=== PATIENT | female | born 1960 | race Caucasian/White ===

== ENCOUNTER 2018-05-14 10:29 | Emergency (ER) | payer OTHER, SELFPAY ==
[2018-05-14 10:39] VITALS: BP 136/74; PULSE 63; RESP 16; TEMP 36.6; O2SAT 97
--- NOTE | 2018-05-14 11:21 | ED_ITS ---
HPI - Abdominal Pain General Chief Complaint: Abdominal Pain Stated Complaint: acute pancreatitis attack Time Seen by Provider: 05/14/18 11:05 Source: patient Mode of arrival: ambulatory Limitations: no limitations History of Present Illness HPI narrative: Patient is a 58-year-old female who presents with abdominal pain. She feels like her insight is burning. He has been ongoing for the last 2 days. No nausea or vomiting. No fever or chills. She has had a couple of episodes of watery diarrhea nonbloody. He says he ate out recently he does not normally do so. She also has a history of celiac disease. MD complaint: abdominal pain Pain Consistency: constant Location: periumbilical and epigastric Radiation: none Related Data Home Medications Medication Instructions Recorded Confirmed Vitamins And Enzymes 1 dose PO DAILY 05/14/18 05/14/18 naltrexone 1 dose QPM 05/14/18 05/14/18 Allergies Allergy/AdvReac Type Severity Reaction Status Date / Time cephalexin [From KEFLEX] Allergy Unknown Verified 05/14/18 10:39 ciprofloxacin [From CIPRO] Allergy Unknown Verified 05/14/18 10:39 clarithromycin [From BIAXIN] Allergy Unknown Verified 05/14/18 10:39 codeine [CODEINE] Allergy Unknown Verified 05/14/18 10:39 gentamicin [GENTAMICIN] Allergy Unknown Verified 05/14/18 10:39 melon [MELON] Allergy Unknown Verified 05/14/18 10:39 mold [MOLD] Allergy Unknown Verified 05/14/18 10:39 morphine [MORPHINE] Allergy Unknown Verified 05/14/18 10:39 peanut [PEANUT] Allergy Unknown Verified 05/14/18 10:39 Penicillins [PENICILLINS] Allergy Unknown Verified 05/14/18 10:39 procaine [From NOVOCAIN] Allergy Unknown Unverified 08/16/17 12:31 Review of Systems Review of Systems GENERAL: Denies chills, fatigue, malaise, fever, sweats, travel HEENT: Denies sinus pain, ear pain, sore throat, difficulty swallowing, neck pain RESPIRATORY: Denies dyspnea, cough, wheezing, hemoptysis, sputum. CARDIOVASCULAR: Denies chest pain, palpitations, orthopnea, edema GASTROINTESTINAL: See HPI : Denies dysuria, frequency, incontinence, hematuria, urinary retention, flank pain. MUSCULOSKELETAL: Denies weakness, joint pain, or bony pain SKIN: No rash, no erythema, no pruritus NEUROLOGIC: Denies weakness, dizziness, headache, numbness, change in speech, confusion PSYCHIATRIC: No concerning psychosocial issues. 12 point review of systems is negative except for those stated above and HPI [facility] Medical History Celiac disease (Acute) Surgical History History of cholecystectomy (Acute) Exam Initial Vital Signs Initial Vital Signs: Vital Signs Temperature 97.8 F 05/14/18 10:39 Pulse Rate 63 05/14/18 10:39 Respiratory Rate 16 05/14/18 10:39 Blood Pressure 136/74 05/14/18 10:39 Pulse Oximetry 97 05/14/18 10:39 GENERAL: Well-appearing, well-nourished and in no acute distress. HEENT: Head atraumatic,EOMI, pupils reactive CARDIOVASCULAR: Regular rate and rhythm without murmurs, rubs or gallops. RESPIRATORY: Breath sounds equal bilaterally, no wheezes rales or rhonchi. ABDOMEN: Soft, mild epigastric tenderness no guarding no rebound no right upper quadrant pain EXTREMITIES: Normal range of motion, no clubbing or edema. Neurovascularly intact NEUROLOGICAL: Alert and oriented x4.Normal gait and speech. Cranial nerves II through XII grossly intact. SKIN: Warm, dry, no laceration, no petechiae, no rashes or lesions. Course Orders Ordered: ED Orders 05/14/18 10:45 Urine Microscopic Stat 05/14/18 11:30 Complete Blood Count AUTO DIFF Stat Comprehensive Metabolic Panel Stat Lipase Stat Discontinued Medications Sodium Chloride (Normal Saline 0.9%) 1,000 mls @ 1,000 mls/hr IV CONT CAROL Last Infusion: 05/14/18 12:33 Dose: 0 mls/hr Admin: 05/14/18 11:30 Dose: 1,000 mls/hr Pantoprazole Sodium (Protonix) 40 mg IV NOW ONE Stop: 05/14/18 11:16 Last Admin: 05/14/18 11:44 Dose: Not Given Vital Signs - 8 hr 05/14/18 12:35 Pulse Rate 72 Respiratory Rate 13 Blood Pressure 124/70 Pulse Oximetry 96 MDM - Abdominal Pain Lab Data Attestation: I reviewed the patient's lab results. Result diagrams: 05/14/18 11:30 05/14/18 11:30 Lab Results 05/14/18 05/14/18 05/14/18 Range/Units 10:45 11:30 11:30 WBC 7.3 (4.5-11.0) X10^3/uL RBC 5.10 (4.0-5.2) X10^6/uL Hgb 15.0 (12.0-16.0) g/dL Hct 44.9 (36-46) % MCV 88.2 (80-100) fL MCH 29.4 (26-34) PG MCHC 33.3 (30-36) % RDW 14.0 (11.6-14.8) % Plt Count 350 (150-400) X10^3/uL Neut % (Auto) 72.1 (50-75) % Lymph % (Auto) 21.0 L (25-40) % [place] % (Auto) 6.1 (3-14) % Eos % (Auto) 0.3 L (2-4) % Baso % (Auto) 0.5 (0-2) % Neut # (Auto) 5300 (9504-4432) /uL Sodium 141 (137-145) mmol/L Potassium 4.1 (3.4-5.1) mmol/L Chloride 105 (98-107) mmol/L Carbon Dioxide 23 (22-32) mmol/L BUN 19 H (7-17) mg/dL Creatinine 1.20 H (0.52-1.04) mg/dL Estimated GFR 45.8 L (>60) mL/min BUN/Creatinine Ratio 15.8 (6-22) Glucose 110 (80-110) mg/dL Calcium 9.8 (8.4-10.2) mg/dL Total Bilirubin 0.5 (0.2-1.3) mg/dL AST 24 (14-36) IU/L ALT 37 (9-52) IU/L Alkaline Phosphatase 79 (38-126) U/L Total Protein 7.6 (6.3-8.2) g/dL Albumin 4.6 (3.5-5.0) g/dL Globulin 3.0 (1.7-4.1) g/dL Albumin/Globulin Ratio 1.5 (1.0-2.8) Lipase 376 H (23-300) U/L Urine RBC 1-5/hpf (0-5/HPF) Urine WBC None seen (0-5/HPF) Urine Bacteria None seen (None) Ur Culture Indicated? Cult not indicated Micro UA Comment Not Reportable Point of care testing: Urine Dip Bedside Urine Glucose Negative Bedside Urine Bilirubin - Negative Bedside Urine Ketone +/- 5 Urine Specific [place] 1.020 Bedside Urine Occult Blood +/- Bedside Urine pH 6.0 Bedside Urine Protein +/- 15 Bedside Urine Urobilinogen +/- 1mg Bedside Urine Nitrite - Negative Bedside Urine Leukocytes - Negative Esterase MDM Narrative Medical decision making narrative: Patient did not want Protonix thing that she had a low acid stomach. No indication of pancreatitis some slight dehydration but she is tolerating oral fluids and she has had 1 L of IV fluids. She is overall feeling better. Her abdomen remained soft at this time no need for imaging. Discharge Plan Departure Patient Disposition: Home Clinical Impression: Abdominal pain Discharge Date/Time: 05/14/18 12:36 Interventions: ED Discharge Assessment Last Done: 05/14/18 12:35 Instructions: Acute Abdominal Pain Activity Restrictions/Additional Instructions: *You have been diagnosed with abdominal pain *What to do: No sign of infection or pancreatitis today blood work does show some mild dehydration recommend increasing her fluid intake *Continue to take medications as directed *Follow up with your primary care provider in 2-3 days *Return to ER if you should have increasing pain, persistent vomiting or any new , worsening or concerning symptoms Prescriptions: No Action naltrexone 1 dose QPM RF: 0 Vitamins And Enzymes 1 dose PO DAILY RF: 0
[2018-05-14] MEDS: SODIUM CHLORIDE 0.9% 1,000 ML 1000 ML IV (11:30)
[2018-05-14 11:38] LABS: Add Manual Diff / Slide Review NO; Basophils Percent Auto 0.5 % (0-2); Eosinophils Percent Auto 0.3 % (2-4); Hematocrit 44.9 % (36-46); Mean Corpuscular HGB Conc 33.3 % (30-36); Mean Corpuscular Hemoglobin 29.4 PG (26-34); Mean Corpuscular Volume 88.2 fL (80-100); Monocytes Percent Auto 6.1 % (3-14); Neutrophils Absolute Auto 5300 /uL (1500-7000); Neutrophils Percent Auto 72.1 % (50-75); Platelet Count 350 X10^3/uL (150-400); White Blood Cell Count 7.3 X10^3/uL (4.5-11.0)
[2018-05-14 11:52] LABS: Bacteria Urine None Seen; WBC Urine None Seen (0-5/HPF)
[2018-05-14 11:55] LABS: Alanine Aminotransferase 37 IU/L (9-52); Albumin 4.6 g/dL (3.5-5.0); Albumin Globulin Ratio 1.5 (1.0-2.8); Alkaline Phosphatase 79 U/L (38-126); Aspartate Aminotransferase 24 IU/L (14-36); BUN Creatinine Ratio 15.8 (6-22); Bilirubin Total 0.5 mg/dL (0.2-1.3); Blood Urea Nitrogen 19 mg/dL (7-17); Calcium 9.8 mg/dL (8.4-10.2); Carbon Dioxide 23 mmol/L (22-32); Chloride 105 mmol/L (98-107); Estimated Glomerular Filt Rate 45.8 mL/min (>60); Glucose 110 mg/dL (80-110); HEMOLYSIS < 15 (0-50); Lipase 376 U/L (23-300); Potassium 4.1 mmol/L (3.4-5.1); Sodium 141 mmol/L (137-145); Total Protein 7.6 g/dL (6.3-8.2)
[2018-05-14 12:02] LABS: Culture Indicated Urine Cult Not Indicated; RBC Urine 1-5/HPF (0-5/HPF)
[2018-05-14 12:35] VITALS: BP 124/70; PULSE 72; RESP 13; O2SAT 96
== END 2018-05-14 12:36 | disposition home or self-care (01) ==
PROVIDERS: Emergency Provider Emergency Medicine
DX: R10.9 Unspecified abdominal pain (principal)
CPT/HCPCS: 36591; 80053; 81003; 81015; 83690; 85025; 96360; 99283; 99284

== ENCOUNTER 2018-06-08 15:54 | Emergency (ER) | payer OTHER, SELFPAY ==
[2018-06-08 16:17] VITALS: BP 138/74; PULSE 69; RESP 12; TEMP 37.2; O2SAT 98; BMI 23.5
[2018-06-08 19:32] VITALS: BP 133/71; PULSE 81; RESP 16; O2SAT 97
--- NOTE | 2018-06-08 19:42 | ED_ITS ---
HPI - Wound/Laceration <Nicole Mariano PA-C - Last Filed: 06/08/18 22:29> General Chief Complaint: Recheck/Abnormal Lab/Rx Stated Complaint: SMALL WOUND MIDDLE FINGER L HAND,NOW JAW TIGHTNESS Time Seen by Provider: 06/08/18 19:41 Source: patient Mode of arrival: ambulatory Limitations: no limitations History of Present Illness HPI narrative: this 58-year-old female comes to ED today due to concern for possible tetanus exposure. She got a tiny wound on her left middle finger when cleaning a vile vesna drain 9 days ago. she went to the pharmacy and got a tetanus shot today. She states that afterwards and especially yesterday morning her finger was popping, like a tendon issue, which concerned her. She states that she has also had some intermittent tightness in her jaw. She states that she has had some crepitus in her TMJ for some time, but this is different, not having pain. She feels like this is more in her anterior neck muscles. She states she has not had any fever , but states her normal temperature is lower than it is here. She has not had any difficulty opening or closing her jaw. She states that her finger popping has gotten better. She states that she has not had any chest pain, but did have some warmth across her chest which she thinks was related to her tetanus vaccine earlier. She denies any dyspnea. She has not had any dizziness or palpitations. She has not had any muscle spasm or tightness elsewhere. She denies any nausea or vomiting. she specifically requests metronidazole due to concern for tetanus. Related Data Home Medications Medication Instructions Recorded Confirmed Vitamins And Enzymes 1 dose PO DAILY 05/14/18 06/08/18 naltrexone 1 dose QPM 05/14/18 06/08/18 Previous Rx's Medication Instructions Recorded metronidazole 500 mg PO Q8H 7 Days #21 tab 06/08/18 Allergies Allergy/AdvReac Type Severity Reaction Status Date / Time cephalexin [From KEFLEX] Allergy Unknown Verified 06/08/18 16:24 ciprofloxacin [From CIPRO] Allergy Unknown Verified 06/08/18 16:24 clarithromycin [From BIAXIN] Allergy Unknown Verified 06/08/18 16:24 codeine [CODEINE] Allergy Unknown Verified 06/08/18 16:24 gentamicin [GENTAMICIN] Allergy Unknown Verified 06/08/18 16:24 melon [MELON] Allergy Unknown Verified 06/08/18 16:24 mold [MOLD] Allergy Unknown Verified 06/08/18 16:24 morphine [MORPHINE] Allergy Unknown Verified 06/08/18 16:24 peanut [PEANUT] Allergy Unknown Verified 06/08/18 16:24 Penicillins [PENICILLINS] Allergy Unknown Verified 06/08/18 16:24 procaine [From NOVOCAIN] Allergy Unknown Unverified 06/08/18 16:24 Review of Systems <Nicole Mariano PA-C - Last Filed: 06/08/18 22:29> Review of Systems ROS Unobtainable: All systems reviewed & are unremarkable except as noted in HPI and below Exam <Nicole Mariano PA-C - Last Filed: 06/08/18 22:29> Narrative Exam Narrative: GENERAL APPEARANCE: Patient sitting comfortably, in no distress. HEENT: PERRL, EOMI, normal oropharynx NECK/THYROID: Neck supple, no JVD, no masses. LUNGS: Clear to auscultation bilaterally. HEART: Regular rate and rhythm without murmur, normal S1, S2, no S3 or S4. ABDOMEN: Soft, NT, ND, + BS x 4 quadrants EXTREMITIES: No edema. No calf tenderness NEUROLOGIC: Alert and oriented, normal speech, and coordination. DERMATOLOGIC: She has 2 tiny scab wounds (1-2 mm ) on the right hand fingers , and 1 superficial barely visible scab on the left pointer finger just proximal to the PIP that is barely visible ( the one of concern to patient) also 1 mm. There is no surrounding erythema, no drainage MUSCULOSKELETAL: No C-spine tenderness, full range of motion of the neck. Perhaps very mild tenderness of the anterior portions of the SCM muscles. Full range of motion of the jaw without tenderness. Full range of motion of the hands and fingers without tenderness or tendon snapping. no muscle fasciculations observed. Initial Vital Signs Initial Vital Signs: Vital Signs Temperature 98.9 F 06/08/18 16:17 Pulse Rate 69 06/08/18 16:17 Respiratory Rate 12 06/08/18 16:17 Blood Pressure 138/74 06/08/18 16:17 Pulse Oximetry 98 06/08/18 16:17 <Shahbaz Conklin DO - Last Filed: 06/09/18 06:19> Initial Vital Signs Initial Vital Signs: Vital Signs Temperature 98.9 F 06/08/18 16:17 Pulse Rate 69 06/08/18 16:17 Respiratory Rate 12 06/08/18 16:17 Blood Pressure 138/74 06/08/18 16:17 Pulse Oximetry 98 06/08/18 16:17 Course <Nicole Mariano PA-C - Last Filed: 06/08/18 22:29> Additional Information: Suspect likelihood that patient's symptoms arise from tetanus exposure is extremely low. [facility]. Conklin and he agrees with assessment. We did decide to give a dose of IV Flagyl tonight, and have patient continue this orally. We also did some cardiac workup as she had some atypical symptoms with tightness in her neck. Cautioned on need to return for any acutely worsening symptoms, and also advised to contact her insurance on Monday to set up follow-up and care with a local PCP that she can see next week as she could not remember whom she saw in [facility] a couple of years ago. Orders Ordered: Discontinued Medications Metronidazole (Flagyl) 500 mg in 100 mls @ 100 mls/hr IV NOW ONE Stop: 06/08/18 21:15 Last Infusion: 06/08/18 21:45 Dose: 100 mls/hr Admin: 06/08/18 20:24 Dose: 100 mls/hr Vital Signs - 8 hr 06/08/18 16:17 06/08/18 19:32 06/08/18 21:23 Temperature 98.9 F Pulse Rate 69 81 66 Respiratory Rate 12 16 15 Blood Pressure 138/74 Blood Pressure [Left Arm] 133/71 104/65 Pulse Oximetry 98 97 99 <Shahbaz Conklin, - Last Filed: 06/09/18 06:19> Orders Ordered: Discontinued Medications Metronidazole (Flagyl) 500 mg in 100 mls @ 100 mls/hr IV NOW ONE Stop: 06/08/18 21:15 Last Infusion: 06/08/18 21:45 Dose: 100 mls/hr Admin: 06/08/18 20:24 Dose: 100 mls/hr Vital Signs - 8 hr 06/08/18 16:17 06/08/18 19:32 06/08/18 21:23 Temperature 98.9 F Pulse Rate 69 81 66 Respiratory Rate 12 16 15 Blood Pressure 138/74 Blood Pressure [Left Arm] 133/71 104/65 Pulse Oximetry 98 97 99 MDM - Wound/Laceration <Nicole Mariano PA-C - Last Filed: 06/08/18 22:29> Lab Data Attestation: I reviewed the patient's lab results. Result diagrams: 06/08/18 20:22 06/08/18 20:22 Lab Results 06/08/18 06/08/18 Range/Units 20:22 20:22 WBC 8.4 (4.5-11.0) X10^3/uL RBC 4.86 (4.0-5.2) X10^6/uL Hgb 14.0 (12.0-16.0) g/dL Hct 43.4 (36-46) % MCV 89.3 (80-100) fL MCH 28.9 (26-34) PG MCHC 32.3 (30-36) % RDW 14.5 (11.6-14.8) % Plt Count 356 (150-400) X10^3/uL Neut % (Auto) 55.1 (50-75) % Lymph % (Auto) 36.8 (25-40) % [place] % (Auto) 6.3 (3-14) % Eos % (Auto) 1.1 L (2-4) % Baso % (Auto) 0.7 (0-2) % Neut # (Auto) 4600 (2615-4369) /uL Lymph # (Auto) 3100 (3572-6562) /uL [place] # (Auto) 500 (0-900) /uL Eos # (Auto) 100 (0-450) /uL Baso # (Auto) 100 (0-100) /uL Sodium 141 (137-145) mmol/L Potassium 3.6 (3.4-5.1) mmol/L Chloride 104 (98-107) mmol/L Carbon Dioxide 26 (22-32) mmol/L BUN 24 H (7-17) mg/dL Creatinine 0.60 (0.52-1.04) mg/dL Estimated GFR > 60.0 (>60) mL/min BUN/Creatinine Ratio 40.0 H (6-22) Glucose 99 (80-110) mg/dL Calcium 9.5 (8.4-10.2) mg/dL Total Bilirubin 0.2 (0.2-1.3) mg/dL AST 24 (14-36) IU/L ALT 29 (9-52) IU/L Alkaline Phosphatase 85 (38-126) U/L Total Creatine Kinase 60 (30-135) U/L CK-MB (CK-2) TNP CK-MB (CK-2) Rel Index TNP Troponin I < 0.012 (0.01-0.034) ng/mL Total Protein 7.9 (6.3-8.2) g/dL Albumin 4.6 (3.5-5.0) g/dL Globulin 3.3 (1.7-4.1) g/dL Albumin/Globulin Ratio 1.4 (1.0-2.8) ECG Data Attestation: I personally reviewed and interpreted this ECG as follows: ( Normal sinus rhythm with rate 70, normal axis) Prior ECG tracings: not available for review <Shahbaz Conklin DO - Last Filed: 06/09/18 06:19> Lab Data Lab Results 06/08/18 06/08/18 Range/Units 20:22 20:22 WBC 8.4 (4.5-11.0) X10^3/uL RBC 4.86 (4.0-5.2) X10^6/uL Hgb 14.0 (12.0-16.0) g/dL Hct 43.4 (36-46) % MCV 89.3 (80-100) fL MCH 28.9 (26-34) PG MCHC 32.3 (30-36) % RDW 14.5 (11.6-14.8) % Plt Count 356 (150-400) X10^3/uL Neut % (Auto) 55.1 (50-75) % Lymph % (Auto) 36.8 (25-40) % [place] % (Auto) 6.3 (3-14) % Eos % (Auto) 1.1 L (2-4) % Baso % (Auto) 0.7 (0-2) % Neut # (Auto) 4600 (0434-2153) /uL Lymph # (Auto) 3100 (7468-2892) /uL [place] # (Auto) 500 (0-900) /uL Eos # (Auto) 100 (0-450) /uL Baso # (Auto) 100 (0-100) /uL Sodium 141 (137-145) mmol/L Potassium 3.6 (3.4-5.1) mmol/L Chloride 104 (98-107) mmol/L Carbon Dioxide 26 (22-32) mmol/L BUN 24 H (7-17) mg/dL Creatinine 0.60 (0.52-1.04) mg/dL Estimated GFR > 60.0 (>60) mL/min BUN/Creatinine Ratio 40.0 H (6-22) Glucose 99 (80-110) mg/dL Calcium 9.5 (8.4-10.2) mg/dL Total Bilirubin 0.2 (0.2-1.3) mg/dL AST 24 (14-36) IU/L ALT 29 (9-52) IU/L Alkaline Phosphatase 85 (38-126) U/L Total Creatine Kinase 60 (30-135) U/L CK-MB (CK-2) TNP CK-MB (CK-2) Rel Index TNP Troponin I < 0.012 (0.01-0.034) ng/mL Total Protein 7.9 (6.3-8.2) g/dL Albumin 4.6 (3.5-5.0) g/dL Globulin 3.3 (1.7-4.1) g/dL Albumin/Globulin Ratio 1.4 (1.0-2.8) Discharge Plan Departure Patient Disposition: Home Clinical Impression: Puncture wound, Muscle tightness Discharge Date/Time: 06/08/18 22:28 Interventions: ED Discharge Assessment Last Done: 06/08/18 22:28 Instructions: DI for Atypical Chest Pain, DI for Puncture Wound Activity Restrictions/Additional Instructions: Please return as we talked about if you have any acutely worsening symptoms, or new symptoms such as difficulty breathing, feeling faint, or chest pain. Also if you have difficulty opening your jaw, new movement difficulties, or fever. your chance of significant tetanus exposure is very low, however we have given you a dose of metronidazole here as you requested for this, and I have given you a prescription to continue this orally. I have given you instructions for atypical chest pain as now since you had the discomfort in your neck and had a warm feeling across your chest earlier. There was no acute problem found on your heart studies. Please call your insurance on Monday and let them know you were seen in the ED and need to arrange follow up for next week (you should be seen early next week for recheck a few days after starting the antibiotic). if you do remember where you were seen previously a couple of years ago in [place], you could also call there for follow-up. Prescriptions: New metronidazole 500 mg tablet 500 mg PO Q8H 7 Days Qty: 21 RF: 0 No Action naltrexone 1 dose QPM RF: 0 Vitamins And Enzymes 1 dose PO DAILY RF: 0 <Shahbaz Conklin DO - Last Filed: 06/09/18 06:19> Cosign ED Attending Sameeraature Attestation: I was immediately available in the department for consultation. Documentation has been reviewed. I agree with assessment and plan.
[2018-06-08] MEDS: metroNIDAZOLE 500 MG/100 ML PIGGYBACK 100 MG IV (20:24)
[2018-06-08 20:29] LABS: Add Manual Diff / Slide Review NO; Basophils Absolute Auto 100 /uL (0-100); Basophils Percent Auto 0.7 % (0-2); Eosinophils Absolute Auto 100 /uL (0-450); Eosinophils Percent Auto 1.1 % (2-4); Hematocrit 43.4 % (36-46); Lymphocytes Absolute Auto 3100 /uL (1100-4500); Lymphocytes Percent Auto 36.8 % (25-40); Mean Corpuscular HGB Conc 32.3 % (30-36); Mean Corpuscular Hemoglobin 28.9 PG (26-34); Mean Corpuscular Volume 89.3 fL (80-100); Monocytes Absolute Auto 500 /uL (0-900); Monocytes Percent Auto 6.3 % (3-14); Neutrophils Absolute Auto 4600 /uL (1500-7000); Neutrophils Percent Auto 55.1 % (50-75); Platelet Count 356 X10^3/uL (150-400); Red Blood Cell Count 4.86 X10^6/uL (4.0-5.2); Red Cell Distribution Width 14.5 % (11.6-14.8); White Blood Cell Count 8.4 X10^3/uL (4.5-11.0)
[2018-06-08 20:45] LABS: Alanine Aminotransferase 29 IU/L (9-52); Albumin 4.6 g/dL (3.5-5.0); Albumin Globulin Ratio 1.4 (1.0-2.8); Alkaline Phosphatase 85 U/L (38-126); Aspartate Aminotransferase 24 IU/L (14-36); Bilirubin Total 0.2 mg/dL (0.2-1.3); Blood Urea Nitrogen 24 mg/dL (7-17); Calcium 9.5 mg/dL (8.4-10.2); Carbon Dioxide 26 mmol/L (22-32); Chloride 104 mmol/L (98-107); Creatine Kinase 60 U/L (30-135); Estimated Glomerular Filt Rate > 60.0 mL/min (>60); Globulin 3.3 g/dL (1.7-4.1); Glucose 99 mg/dL (80-110); HEMOLYSIS < 15 (0-50); Potassium 3.6 mmol/L (3.4-5.1); Sodium 141 mmol/L (137-145); Total Protein 7.9 g/dL (6.3-8.2)
[2018-06-08 20:58] LABS: Troponin I < 0.012 ng/mL (0.01-0.034)
[2018-06-08 21:23] VITALS: BP 104/65; PULSE 66; RESP 15; O2SAT 99
== END 2018-06-08 22:28 | disposition home or self-care (01) ==
PROVIDERS: Emergency Provider Internal Medicine
DX: S61.213A Laceration without foreign body of left middle finger without damage to nail, initial encounter (principal); W26.8XXA Contact with other sharp object(s), not elsewhere classified, initial encounter
CPT/HCPCS: 36415; 36591; 80053; 82550; 84484; 85025; 93005; 96365; 96366; 99283; 99284